=== PATIENT | female | born 1995 | race Two or more races ===

== ENCOUNTER 2019-11-29 17:15 | Emergency (ER) | payer MEDICAID ==
[~2019-11-29] VITALS: Ht 162.6 cm; Wt 147.0 kg
[2019-11-29 17:43] VITALS: BP 136/83
[2019-11-29] MEDS ORDERED: DEXAMETHASONE 4 MG TABLET PO ONE (18:00)
[2019-11-29] MEDS ORDERED: DEXAMETHASONE 4 MG TABLET ONE (18:22)
--- NOTE | 2019-11-29 18:24 | NUR ---
PT HERE WITH C/O STREOP, STATES DIAGNOSED AT [facility]. 1 WEEK AGO AND STATES ON AMOXICILLIN AND NOT GETTING BETTER.
--- NOTE | 2019-11-29 18:25 | NUR ---
PT MEDICATED PER ORDER.
[2019-11-29 18:54] LABS: BASOPHILS # (AUTO) 0.03 x10^3/uL (0-0.1); BASOPHILS % (AUTO) 0 % (0-1); EOSINOPHILS # (AUTO) 0.08 x10^3/uL (0-0.4); EOSINOPHILS % (AUTO) 1 % (1-7); LYMPHOCYTES # (AUTO) 1.74 x10^3/uL (1-3.4); LYMPHOCYTES % (AUTO) 10 % (22-44); MD NO; MEAN CORPUSCULAR HEMOGLOBIN 20.6 pg (27.0-34.8); MEAN CORPUSCULAR HGB CONC 31.1 g/dL (32.4-35.8); MEAN CORPUSCULAR VOLUME 66.4 fL (80-100); MEAN PLATELET VOLUME 8.8 fL (7.4-10.4); MONOCYTES # (AUTO) 1.01 x10^3/uL (0.2-0.8); MONOCYTES % (AUTO) 6 % (2-9); NEUTROPHILS # (AUTO) 14.93 x10^3/uL (1.8-6.8); NEUTROPHILS % (AUTO) 84 % (42-75); PLATELET COUNT 372 x10^3/uL (130-400); RED BLOOD COUNT 5.84 x10^6/uL (3.82-5.3); RED CELL DISTRIBUTION WIDTH 17.8 % (9.6-15.2)
[2019-11-29 18:55] LABS: ALBUMIN 3.6 g/dL (3.4-5.0); ANION GAP 7 mmol/L (5-15); CALCIUM 9.2 mg/dL (8.5-10.1); CHLORIDE 104 mmol/L (98-107); CREATININE 0.72 mg/dL (0.55-1.02)
[2019-11-29] MEDS ORDERED: CEFTRIAXONE PMX 1GM/50ML 50 ML IV ONE (19:30)
[2019-11-29] MEDS ORDERED: SODIUM CHLORIDE 0.9% 1,000ML IVBOLUS ONE (19:30)
[2019-11-29] MEDS ORDERED: SODIUM CHLORIDE FLUSH 10ML SYR IVF ONE (19:30)
[2019-11-29] MEDS ORDERED: AMOXICILLIN/CLAV 875-125MG TABLET ONE (19:55)
--- NOTE | 2019-11-29 19:58 | NUR ---
PT MEDICATED PER ORDERS.
[2019-11-29] MEDS ORDERED: AMOXICILLIN/CLAV 875-125MG TABLET PO ONE (20:00)
--- NOTE | 2019-11-29 20:32 | NUR ---
Patient/Caregiver given discharge instructions and they have confirmed that they understand the instructions. Patient ambulatory with steady gait.
== END 2019-11-29 20:34 | disposition home or self-care (01) ==
LOC: ED 19:45
DX: J02.0 Streptococcal pharyngitis (principal); R50.9 Fever, unspecified
CPT/HCPCS: 36415; 80048; 82040; 84703; 85025; 86308; 87880; 99283